=== PATIENT | male | born 1955 | race Caucasian/White ===

== ENCOUNTER 2020-02-29 12:50 | Emergency (ER) | payer MEDICAID ==
[2020-02-29] MEDS ORDERED: Sodium Chloride 0.9% 10 ML Syringe FLUSH PRN (12:58)
--- NOTE | 2020-02-29 14:42 | EDM.PDOC ---
ED HPI GENERAL MEDICAL PROBLEM - General Chief Complaint: Neurological Problem Stated Complaint: [facility] Time Seen by Provider: 02/29/20 12:58 Source of Information: Reports: Patient, EMS, RN Notes Reviewed - History of Present Illness INITIAL COMMENTS - FREE TEXT/NARRATIVE: 64 yr old male had a witness seizure at [facility]. Generalized seizure had stopped but he was post ictal upon EMS arrival. He was given ativan 1 mg IV and 1 amp D50. He started waking up en route to ED. Hx of Parkinson's. Hx of prior hemorhagic stroke. He is not aware of hx of seizures. No [place] on arrival to ED. Has not been feeling ill. From [facility], visiting a daughter and grandchildren here in [place] with strong consideration to move in. - Related Data Allergies Allergy/AdvReac Type Severity Reaction Status Date / Time No Known Allergies Allergy Verified 02/29/20 13:06 Past Medical History Neurological History: Reports: Parkinson's Social & Family History - Tobacco Use Tobacco Use Status *Q: Never Tobacco User ED ROS GENERAL - Review of Systems Review Of Systems: See Below Constitutional: Denies: Fever, Chills HEENT: Denies: Throat Pain Respiratory: Denies: Shortness of Breath, Cough Cardiovascular: Denies: Chest Pain GI/Abdominal: Denies: Abdominal Pain, Nausea, Vomiting Musculoskeletal: Reports: No Symptoms Neurological: Reports: Dizziness (now better), Seizure, Other (was very post ictal, now waking up on arrival to ED) ED EXAM, NEURO - Physical Exam Exam: See Below General Appearance: Other (drowsy, answering simple questions at time of initial exam) Eye Exam: Bilateral Eye: PERRL Ears: Normal External Exam Throat/Mouth: Other (There is dried blood on his tongue, no visible, cut, no active bleeding) Head Exam: Facial Swelling (mild swelling and bruising lateral and inf. to R eye) Neck: Non-Tender Respiratory/Chest: No Respiratory Distress, Lungs Clear, Normal Breath Sounds Cardiovascular: Tachycardia GI/Abdominal: Non-Tender Neurological: Alert, No Motor/Sensory Deficits Extremities: Normal Inspection, Normal Range of Motion Skin Exam: Warm, Dry, Normal Color Course - Vital Signs Last Recorded V/S: Last Vital Signs Temp 98.2 F 02/29/20 13:00 Pulse 108 H 02/29/20 13:00 Resp 20 02/29/20 13:00 BP 134/91 H 02/29/20 13:00 Pulse Ox 88 L 02/29/20 13:00 - Orders/Labs/Meds Orders: Active Orders 24 hr Category Date Time Status Peripheral IV Care [RC] . DIRECTED Care 02/29/20 12:58 Active Head wo Cont [CT] Stat Exams 02/29/20 12:58 Taken Sodium Chloride 0.9% [Saline Flush] Med 02/29/20 12:58 Active 10 ml FLUSH ASDIRECTED PRN Peripheral IV Insertion Adult [OM.PC] Stat Oth 02/29/20 12:58 Ordered Medication Orders Sodium Chloride (Saline Flush) 10 ml FLUSH ASDIRECTED PRN PRN Reason: Keep Vein Open Last Admin: 02/29/20 13:36 Dose: 10 ml Documented by: EDEL Labs: Laboratory Tests 02/29/20 02/29/20 Range/Units 13:05 13:05 WBC 5.37 (4.23-9.07) K/mm3 RBC 4.82 (4.63-6.08) M/mm3 Hgb 13.3 L (13.7-17.5) gm/dl Hct 40.6 (40.1-51.0) % MCV 84.2 (79.0-92.2) fl MCH 27.6 (25.7-32.2) pg MCHC 32.8 (32.2-35.5) g/dl RDW Std Deviation 43.0 (35.1-43.9) fL Plt Count 202 (163-337) K/mm3 MPV 8.9 L (9.4-12.3) fl Neut % (Auto) 71.9 H (34.0-67.9) % Lymph % (Auto) 16.0 L (21.8-53.1) % Creek % (Auto) 8.9 (5.3-12.2) % Eos % (Auto) 2.6 (0.8-7.0) Baso % (Auto) 0.4 (0.1-1.2) % Neut # (Auto) 3.86 (1.78-5.38) K/mm3 Lymph # (Auto) 0.86 L (1.32-3.57) K/mm3 Creek # (Auto) 0.48 (0.30-0.82) K/mm3 Eos # (Auto) 0.14 (0.04-0.54) K/mm3 Baso # (Auto) 0.02 (0.01-0.08) K/mm3 Sodium 137 (136-145) mEq/L Potassium 3.9 (3.5-5.1) mEq/L Chloride 102 (98-107) mEq/L Carbon Dioxide 20 L (21-32) mEq/L Anion Gap 18.9 H (5-15) BUN 24 H (7-18) mg/dL Creatinine 1.2 (0.7-1.3) mg/dL Est Cr Clr Drug Dosing 63.01 mL/min Estimated GFR (MDRD) > 60 (>60) mL/min BUN/Creatinine Ratio 20.0 H (14-18) Glucose 163 H (80-115) mg/dL Calcium 8.8 (8.5-10.1) mg/dL Total Bilirubin 0.5 (0.2-1.0) mg/dL AST 26 (15-37) U/L ALT 24 (16-63) U/L Alkaline Phosphatase 80 (46-116) U/L Total Protein 6.6 (6.4-8.2) g/dl Albumin 3.4 (3.4-5.0) g/dl Globulin 3.2 gm/dL Albumin/Globulin Ratio 1.1 (1-2) Meds: Medications Generic Name Dose Route Start Last Admin Trade Name Freq PRN Reason Stop Dose Admin Sodium Chloride 10 ml 02/29/20 12:58 02/29/20 13:36 Saline Flush FLUSH 10 ml ASDIRECTED PRN Administration Keep Vein Open - Re-Assessments/Exams Free Text/Narrative Re-Assessment/Exam: 02/29/20 15:03 labs did come back normal, back to full alertness, nl speech pattern, NAD at time of discharge a short time ago. Departure - Departure Time of Disposition: 14:39 Disposition: Home, Self-Care 01 Condition: Fair Clinical Impression: Seizure - Discharge Information Instructions: Seizure, Adult, Svmn-de-Usis Referrals: PCP,Not In Area [Primary Care Provider] - Forms: ED Department Discharge Additional Instructions: Rest. Continue current medications. Your head CT today and lab work did not show any acute findings. See your Neurologist when you get back home to [place]. Because you plan to move here establish a primary care provider here in [place] and obtain a referral to a Neurologist in [place] or [place]. Return to ED as needed. Because you did have a seizure today do not drive until you have been medically cleared to do so. Sepsis Event Note (ED) - Evaluation Sepsis Screening Result: No Definite Risk - Focused Exam Vital Signs: Vital Signs Temp Pulse Resp BP Pulse Ox 02/29/20 13:00 98.2 F 108 H 20 134/91 H 88 L - My Orders Last 24 Hours: My Active Orders 02/29/20 12:58 Peripheral IV Care [RC] . DIRECTED Head wo Cont [CT] Stat Sodium Chloride 0.9% [Saline Flush] 10 ml FLUSH ASDIRECTED PRN Peripheral IV Insertion Adult [OM.PC] Stat - Assessment/Plan Last 24 Hours: My Active Orders 02/29/20 12:58 Peripheral IV Care [RC] . DIRECTED Head wo Cont [CT] Stat Sodium Chloride 0.9% [Saline Flush] 10 ml FLUSH ASDIRECTED PRN Peripheral IV Insertion Adult [OM.PC] Stat
== END 2020-02-29 15:10 | disposition home or self-care (01) ==
LOC: JD.ED 12:50
DX: R56.9 Unspecified convulsions (principal); G20 Parkinson's disease; Z86.73 Personal history of transient ischemic attack (TIA), and cerebral infarction without residual deficits
CPT/HCPCS: 36415; 70450; 80053; 85025; 99283; 99285-25